=== PATIENT | female | born 1985 | race Caucasian/White ===

== ENCOUNTER 2017-02-07 13:22 | Emergency (ER) | payer BC ==
[2017-02-07 13:31] VITALS: BP 125/75
[2017-02-07] MEDS ORDERED: Ibuprofen TAB* 400 MG PO ONE (14:00)
--- NOTE | 2017-02-07 14:00 | UC ---
Throat Pain/Nasal Ti HPI - HPI Summary HPI Summary: compalint of sore throat that started yesterday difficult to swallow fever and chills since yesterday -didn't check temp becuase she doesn't have thermometer slight headaches, nasal congestion and cough denies ear pain, taking ibuprofen and tylenol with some pain relief - History of Current Complaint Chief Complaint: UCGeneralIllness Stated Complaint: SORE THROAT Time Seen by Provider: 02/07/17 13:47 Hx Obtained From: Patient Hx Last Menstrual Period: 01/24/17 - Allergies/Home Medications Allergies/Adverse Reactions: Allergies Allergy/AdvReac Type Severity Reaction Status Date / Time Oxycodone [From Percocet] Allergy Mild itchiness Verified 02/07/17 13:31 Iodinated Contrast Media Allergy Hives Verified 02/07/17 13:31 [CONTRAST DYE] Wheat Germ Oil Allergy Unknown Verified 02/07/17 13:31 Reaction Details Cats Allergy Intermediate Hives Uncoded 02/07/17 13:31 Home Medications: Home Medications Acetaminophen 2 cap PO Q4HR PRN 02/07/17 [History Confirmed 02/07/17] Amphetamine-Dextroamphetamine [Adderall 10 mg-] 10 mg PO BID 02/07/17 [History Confirmed 02/07/17] PMH/Surg Hx/FS Hx/Imm Hx Previously Healthy: Yes Endocrine History Of: Denies: Diabetes, Thyroid Disease Cardiovascular History Of: Denies: Cardiac Disorders, Hypertension Respiratory History Of: Denies: COPD, Asthma GI/ History Of: Denies: Ulcer Psychological History Of: Reports: Depression - NO MEDS- UNDER CONTROL NOW - Surgical History Surgical History: Yes Surgery Procedure, Year, and Place: Tonsils and adenoid, 2000, [facility], Tubal Ligation 2008, 2 C sections 2008 AND 2006. 08/17/13 - gall bladder - Family History Known Family History: Negative: Cardiac Disease, Hypertension, Diabetes - Social History Occupation: Employed Full-time Lives: With Family Alcohol Use: Occasionally Substance Use Type: None Smoking Status (MU): Current Some Day Smoker Cessation Counseling: Patient Advised to Stop Review of Systems Constitutional: Fever, Chills Skin: Negative Eyes: Negative ENT: Sore Throat, Nasal Discharge Respiratory: Cough Cardiovascular: Negative Gastrointestinal: Negative Genitourinary: Negative Motor: Negative Neurovascular: Negative Musculoskeletal: Negative Neurological: Headache Psychological: Negative All Other Systems Reviewed And Are Negative: Yes Physical Exam Triage Information Reviewed: Yes Appearance: No Pain Distress, Well-Nourished, Obese Vital Signs: Initial Vital Signs Temp 97.7 F 02/07/17 13:26 Pulse 86 02/07/17 13:26 Resp 14 02/07/17 13:26 BP 125/75 02/07/17 13:26 Pulse Ox 100 02/07/17 13:26 Vital Signs Reviewed: Yes Eyes: Positive: Conjunctiva Clear ENT: Positive: Pharyngeal erythema, Nasal congestion, Nasal drainage, TMs normal , Tonsillar swelling, Tonsillar exudate Dental: Positive: Cervical Lymphadenopathy Respiratory: Positive: Lungs clear, Normal breath sounds, No respiratory distress Cardiovascular: Positive: RRR, No Murmur, Pulses Normal Abdomen Description: Positive: Nontender, Soft Bowel Sounds: Positive: Present Musculoskeletal Exam: Normal Neurological Exam: Normal Psychological Exam: Normal Skin Exam: Normal Throat Pain/Nasal Course/Dx - Differential Dx/Diagnosis Differential Diagnosis/HQI/PQRI: Pharyngitis, Tonsillitis, URI, Other - mononucleosis Provider Diagnoses: viral pharyngitis Discharge - Discharge Plan Condition: Stable Disposition: HOME Patient Education Materials: Pharyngitis (ED) Forms: *Work Release Referrals: No Primary Care Phys,NOPCP [Primary Care Provider] - Dominic Henderson MD [Medical Doctor] - Additional Instructions: Your blood pressure is pre-hypertensive reading. Please contact your primary care provider within 1 day -4 weeks for further evaluation. PHARYNGITIS (Sore Throat) What is Pharyngitis? The medical name for a sore throat is Pharyngitis. It is caused by an infection or irritation of your throat or tonsils. The infection can be caused by a virus or by bacteria. Not everyone with Pharyngitis needs antibiotics. Antibiotics will not make viral infections better, and they will not help a sore throat caused by irritation. Symptoms May Include: Sore throat Swelling of the glands in the neck Trouble or pain with swallowing Fever Headache Cough Extreme tiredness Ear pain Treatment Recommendations: Gargle every few hours with a solution of 1/4 teaspoon of salt dissolved in 1/ 2 cup of warm water. Drink plenty of warm beverages, like tea with lemon, (with or without honey) and soup. You may eat and drink cold foods and liquids like frozen yogurt, popsicles, and ice water if that makes your throat feel better. The goal is to keep you well hydrated. Use a "cool-mist" vaporizer or humidifier in the room where you spend most of your time. If you get a sore throat often, consider adding an electronic air filter and humidifier to your furnace system. Don't smoke. Do not eat spicy foods. Take medicine exactly as prescribed. If you do not think it is helping, call your healthcare provider. Do not increase how much or how often you take it without getting their OK first. Non-prescription anti-inflammatory medicine like ibuprofen (Motrin, Advil) or naproxen (Aleve) may help lessen the pain. You should not take these medicines if you have had bleeding in your stomach in the past. Acetaminophen ( Tylenol) is another choice of medicine that may help the pain. If pain medicine that makes you tired or sleepy or contains narcotics is prescribed, you should not drink, drive, or participate in any other activities that you need to be clear-headed for. Please keep all medicines out of the reach of children. Do not get in close contact with anyone you know who has a sore throat. Use throat lozenges (Cepostat, [place], etc.) or suck on hard candy for temporary relief of the pain with swallowing. (Do not give to children under age 5.) Call Your Doctor or Return Here IF: Your symptoms do not start to get better within 2 days or you become worse. You have a fever over 101.0 F orally. You cant swallow liquids or saliva. You are drooling. You start to have trouble breathing. You start to have a rash. You start to have a stiff neck. You start to have pain in your chest. You start to have any symptoms that are new or worry you.
[2017-02-07 18:43] LABS: EBV Response NO
[2017-02-07 18:59] LABS: Manual Entry Verification ROB0080; Mono Internal Control QC Line Present
== END 2017-02-07 14:48 | disposition home or self-care (01) ==
LOC: UCEAST 13:22
DX: J02.9 Acute pharyngitis, unspecified (principal); E66.9 Obesity, unspecified; Z90.49 Acquired absence of other specified parts of digestive tract; Z91.041 Radiographic dye allergy status; Z88.5 Allergy status to narcotic agent; Z72.0 Tobacco use
CPT/HCPCS: 36415; 86308; 87651; 99211; A9270-GY; G0463

== ENCOUNTER 2019-03-22 09:41 | Emergency (ER) | payer BC ==
[2019-03-22 09:53] VITALS: BP 115/77
--- NOTE | 2019-03-22 10:07 | UC ---
Head Injury HPI - HPI Summary HPI Summary: 33 y/o female presents to the urgent care c/o on satday hit top of head under sink. witnessed in and out of conciousness that day. since has headache, light sensitivity, nausea on and off. Blurred vision. pain above left ear. - History Of Current Complaint Chief Complaint: UCHeadInjury Stated Complaint: HEADACHE HEAD INJURY Time Seen by Provider: 03/22/19 10:06 Hx Obtained From: Patient Hx Last Menstrual Period: 03/16/19 ?: No - pt w/ regular menstrual cycles Onset/Duration: Sudden Onset, Lasting Days - 6 days, Still Present, Worse Since - 2 days w/ nausea and photophobia Severity Currently: Moderate Severity Initially: Moderate Pain Intensity: 7 Pain Scale Used: 0-10 Numeric Character: Dull, Pressure Aggravating Factor(s): Other - nausea and photophobia Associated Signs And Symptoms: Positive: LOC (Time In Secs./Mins/Hrs), Nausea. Negative: LOC Duration Unknown, Confusion, Memory Loss, Seizure, Epistaxis, Dental Malocclusion, Neck Pain - Risk Factors SDH Risk Factor: Negative - Allergies/Home Medications Allergies/Adverse Reactions: Allergies Allergy/AdvReac Type Severity Reaction Status Date / Time gluten Allergy Itching Verified 03/22/19 09:55 Iodinated Contrast- Oral and Allergy Itching Verified 03/22/19 09:55 IV Dye oxycodone Allergy Itching Verified 03/22/19 09:55 venom-honey bee Allergy Swelling Verified 03/22/19 09:55 Cats Allergy Intermediate Hives Uncoded 03/22/19 09:55 Home Medications: Home Medications Cetirizine HCl [Zyrtec] 10 mg PO DAILY WITH MEAL 03/22/19 [History Confirmed ] Fluoxetine HCl [Prozac] 20 mg PO DAILY WITH MEAL 03/22/19 [History Confirmed ] LevoCETirizine TAB (NF) [Xyzal TAB (NF)] 5 mg PO DAILY 03/22/19 [History Confirmed 03/22/19] Montelukast Sodium TAB* [Singulair 5 mg TAB*] 5 mg PO DAILY WITH MEAL 03/22/19 [ History Confirmed 03/22/19] PMH/Surg Hx/FS Hx/Imm Hx Previously Healthy: Yes Other Respiratory History: seasonall allergies - Surgical History Surgical History: Yes Surgery Procedure, Year, and Place: Tonsils and adenoid, 2000, [facility], Tubal Ligation 2009, 2 C sections 2008 AND 2005. 08/17/13 - gall bladder - Family History Known Family History: Positive: Cardiac Disease, Hypertension, Diabetes - Social History Occupation: Employed Full-time Lives: With Family Alcohol Use: Occasionally Substance Use Type: Marijuana Smoking Status (MU): Former Smoker Review of Systems All Other Systems Reviewed And Are Negative: Yes Constitutional: Positive: Negative Skin: Positive: Negative Eyes: Positive: Photophobia ENT: Positive: Negative Respiratory: Positive: Negative Cardiovascular: Positive: Negative Gastrointestinal: Positive: Nausea Genitourinary: Positive: Negative Motor: Positive: Negative Neurovascular: Positive: Negative Musculoskeletal: Positive: Negative Neurological: Positive: Headache - left side of her forehead Is Patient Immunocompromised?: No Physical Exam - Summary Physical Exam Summary: Vital signs: reviewed General: awake and alert in no distress; no odor of ETOH. Skin: [place], warm and dry, no surface trauma. HEENT: -Head: atraumatic, no palpable deformities, Brady flat (if still open) -Eyes: PERRLA and EOMI, no periorbital ecchymosis. -Ears: TMs clear, no hemotympanum or Battles sign. -Nose/Face: atraumatic, no septal hematoma. Facial bones symmetric, NT to palpation and stable with attempt at manipulation. -Mouth/Throat: no intraoral trauma, Teeth and mandible are intact. Neck: no point tenderness, step-off or deformity to firm palpation of the cervical spine at the midline. No spasm or paraspinal muscle tenderness. Trachea midline. Carotids equal. No masses. FROM without limitation or pain. Chest: no surface trauma or asymmetry. NT without crepitus or deformity. Normal tidal volume. CTA bilaterally. Oxygen saturation greater than 95% on room air. Heart: RRR, no murmur, rub, or gallop. All peripheral pulses are intact and equal. Abd: nondistended without abrasions or ecchymosis. Bowel sounds are active. NT , guarding or rebound. No masses. Good femoral pulses. Back: no contusions, ecchymosis, or abrasions are noted, NT, without step-off or deformity to firm palpation of the thoracic and lumbar spine. Pelvis: NT to palpation and stable to compression. : Normal external genitalia, no blood at the meatus (if applicable) Rectal: Normal tone. No rectal wall tenderness or mass. Stool is brown and heme negative (if applicable) Extrems: no surface trauma. FROM. Distal motor, neuromuscular supply is intact. Neuro: A&O x4, GCS 15, CN II-XII grossly intact. Motor and sensory exam nonfocal. Reflexes are symmetric. Speech is clear and gait steady. Triage Information Reviewed: Yes Vital Signs: Initial Vital Signs Temp 97.9 F 03/22/19 09:49 Pulse 69 03/22/19 09:49 Resp 18 03/22/19 09:49 BP 115/77 03/22/19 09:49 Pulse Ox 100 03/22/19 09:49 Head Injury Course/Dx - Course Course Of Treatment: PE:WNL. Pt is hemodynamically stable, no AMS or hematoma observed on exam. Pt is interacts normally w/ provider. According to [facility] criteria there is not recommendation for brain CT. Pt explained criteria and he agrees. Pt advised to take Tylenol PO and close observation and brain rest as directed below. He was advised to f/u w/ his PCP mild PRASAD, and photosensitivity persist for further evaluation and treatment. D/C instructions explained. Pt understood and agreed w/ plan of care. Pt left clinic hemodynamically stable, ambulating and A& OX4 - Differential Dx/Diagnosis Differential Diagnosis/HQI/PQRI: Cerebral Contusion, Concussion With LOC, Concussion Without LOC, Contusion Provider Diagnosis: Head contusion, Headache Discharge - Sign-Out/Discharge Documenting (check all that apply): Patient Departure - D/C home All imaging exams completed and their final reports reviewed: Yes - Discharge Plan Condition: Stable Disposition: HOME Prescriptions: Naproxen TAB* [Naprosyn 250 mg TAB*] 250 mg PO Q8H PRN #30 tab PRN Reason: Headache Ondansetron ODT TAB* [Zofran 4 MG Odt TAB*] 4 mg PO Q8H PRN #9 tab.odt PRN Reason: Nausea Patient Education Materials: Contusion in Adults (ED) Forms: *Work Release Referrals: Tomás Salazar MD [Primary Care Provider] - Additional Instructions: 1-Please take Naproxen PO q6-8hrs prn as instructed after meals to alleviate pain and swelling.Increase fluid intake, eat well, rest and avoid strenuous exercise. If Headache returns please take Tylenol PO and Benadryl PO q6hrs instead. 2- Take Zofran PO to alleviate Nausea and Vomiting. 3-If symptoms worsen and vomiting becomes severe w/ severe PRASAD please go immediately to the ER for further management. Otherwise f/u w/ your PCP or Sports medicine orthopedic who specialize in concussions for further evaluation and treatment 4- Rest your brain, avoid watching videos or movies or work in the computer for long period or time. If PRASAD continue to be mild please f/u w/ your PCP for further management - Billing Disposition and Condition Condition: STABLE Disposition: Home
[2019-03-22] MEDS ORDERED: Ondansetron ODT TAB* 4 MG PO ONE (10:29)
[2019-03-22] MEDS ORDERED: Acetaminophen TAB* 325 MG PO ONE (10:29)
== END 2019-03-22 12:01 | disposition home or self-care (01) ==
LOC: UCEAST 09:41
DX: S00.93XA Contusion of unspecified part of head, initial encounter (principal); W22.09XA Striking against other stationary object, initial encounter; Y92.9 Unspecified place or not applicable; R51 Headache; R11.0 Nausea; J30.2 Other seasonal allergic rhinitis; Z91.030 Bee allergy status; Z91.041 Radiographic dye allergy status; Z88.5 Allergy status to narcotic agent; Z91.048 Other nonmedicinal substance allergy status; Z87.891 Personal history of nicotine dependence
CPT/HCPCS: 70450; 81003; 84702; 99212; A9270-GY; G0463